=== PATIENT | male | born 1960 | race Caucasian/White ===

== ENCOUNTER 2017-07-13 09:40 | Day surgery (SDC) | payer MEDICARE, OTHER ==
[~2017-07-13] VITALS: Ht 170.2 cm; Wt 67.9 kg
[2017-07-13] MEDS ORDERED: OMEPRAZOLE (10:55)
[2017-07-13] MEDS ORDERED: RANITIDINE (10:55)
[2017-07-13] MEDS ORDERED: TAMSULOSIN (10:55)
[2017-07-13] MEDS ORDERED: SIMVASTATIN (10:55)
[2017-07-13] MEDS ORDERED: TRAMADOL (10:55)
[2017-07-13] MEDS ORDERED: [UNRECOGNIZED DRUG - OTHER] (10:55)
[2017-07-13] MEDS ORDERED: [UNRECOGNIZED DRUG - OTHER] (10:55)
[2017-07-13] MEDS ORDERED: MIDAZOLAM 1 MG/ML 2 ML INJ ONE (11:19)
[2017-07-13] MEDS ORDERED: LIDOCAINE 2% (SDV) 5 ML INJ ONE (11:19)
[2017-07-13] MEDS ORDERED: PROPOFOL 40 ML ONE (11:19)
[2017-07-13 11:26] VITALS: BP 130/73; PULSE 87; RESP 16
--- NOTE | 2017-07-13 11:53 | OPPN ---
Date/Time of Note Date/Time of Note DATE: 07/13/17 TIME: 11:50 Operative Report Preoperative Diagnosis Abdominal pain and chronic heartburn Dysphagia Screening Postoperative Diagnosis Gastroesophageal reflux disease Gastritis Gastric mucosal biopsies were taken for H. pylori test Operation/Procedure Performed Esophagogastroduodenoscopy and biopsy Colonoscopy Provider: CHUY VALDES MD Anesthesia Type: MAC Estimated blood loss: none Transfusion Required: no Specimens Gastric mucosal biopsy Grafts/Implants: none Complications: no CHUY VALDES MD Jul 13, 2017 11:52
[2017-07-13 12:15] VITALS: BP 128/72; RESP 21
--- NOTE | 2017-07-13 13:44 | GILP ---
DATE OF PROCEDURE: 07/13/2017 PROCEDURE PERFORMED: 1. Esophagogastroduodenoscopy and biopsy. 2. Colonoscopy. SURGEON: Leigh Bedolla MD. PREOPERATIVE DIAGNOSIS: 1. Chronic heartburn. 2. Dysphagia. 3. Abdominal pain. 4. Screening colonoscopy. POSTOPERATIVE DIAGNOSES: 1. Gastroesophageal reflux disease. 2. Gastritis with erosions. 3. Gastric mucosal biopsies were taken for Helicobacter pylori test. 4. Colonoscopy all the way to the cecum. 5. Internal hemorrhoids. 6. No colon neoplasm was identified. INDICATION: Mr. Toi Colon is a 56-year-old male patient who had chronic heartburn associated with dysphagia. He also had upper abdominal pain and nausea. The patient also needed a screening colonoscopy. He noticed a change in the bowel habits. The procedures and possible complications were well explained to the patient. The patient understood and consented to the procedures. DESCRIPTION OF PROCEDURE: Under influence of anesthesia, the gastroscope was carefully introduced into the esophagus. Under direct vision, it was advanced to the stomach, into the pylorus, into the duodenal bulb, and descending duodenum. FINDINGS: Esophagus: The patient had gastroesophageal reflux disease. There was no stricture or neoplasm. Stomach: He had gastritis with erosions. Gastric mucosal biopsies were taken for Helicobacter pylori test. Duodenum was normal. DESCRIPTION OF PROCEDURE: The colonoscope was carefully introduced in the rectum. Under direct vision, it was advanced all the way to the cecum. FINDINGS: The patient had internal hemorrhoids. No colon neoplasm was identified. He tolerated the procedures very well. There was no complication from the procedures. At the end of procedures he was awake with stable vital signs. He was discharged home in care of his family. IMPRESSION: Please see postop diagnoses. PLAN: 1. Continue omeprazole and Zantac. 2. Await Helicobacter pylori test report. 3. MiraLAX 17 g dissolved in a glass of water p.o. daily. 4. Next screening colonoscopy in 10 years. Dictated By: MD DENIS Hernandez/felicia/reny /Document#: [id number]
--- NOTE | 2017-07-14 06:50 | CONS ---
DATE OF ADMISSION: 07/13/2017 DATE OF CONSULTATION: Dear Dr. Haq, I thank you very much for this kind referral. HISTORY OF PRESENT ILLNESS: Mr. Billy Hui is a 56-year- old male patient who was been referred to me for further evaluation of chronic heartburn associated with dysphagia. The patient has been taking omeprazole and Zantac without much relief. He is also nauseated, and he has been taking Zofran. There is no past history of peptic ulcer disease. He is not taking any nonsteroidal anti-inflammatory agents. His appetite has been somewhat poor. No history of gallstones or liver disease. The patient also has no change in the bowel habits or constipation. There is no past history of colon neoplasm. The patient has never had a screening colonoscopy. He is not hypertensive or diabetic. He does not have any heart disease or lung problems. No kidney disease. He has hyperlipidemia. He has enlarged prostate. He has arthritis, and he is status post multiple back surgeries. He is on Tramadol. SOCIAL HISTORY: He is a nonsmoker. He does not abuse alcohol. FAMILY HISTORY: Negative for gastrointestinal tract neoplasm. ALLERGIES: CEPHALEXIN. MEDICATION: 1. Omeprazole 20 mg p.o. daily. 2. Zantac 150 mg p.o. b.i.d. 3. Zofran 500 mg p.o. p.r.n. 4. Tramadol 50 mg p.o. b.i.d. p.r.n. 5. Flomax 0.4 mg p.o. daily. 6. Simvastatin 20 mg p.o. daily. PHYSICAL EXAMINATION: GENERAL: He is 5 feet 7 inches tall and weighs 158 pounds. BMI 25. Blood pressure 134/72. HEART: Normal heart sounds. LUNGS: Clear. ABDOMEN: Soft. No masses. No tenderness. Normal bowel sounds. NEURO: Normal neurological exam. IMPRESSION: 1. Chronic heartburn associated weight dysphagia. The patient has been taking omeprazole and Zantac. The patient also complains of nausea, and he has been taking Zofran. No change in the bowel habits or constipation. The patient has never had a screening colonoscopy. 2. Enlarged prostate. 3. Hyperlipidemia. 4. Arthritis. 5. Status post multiple back surgeries. The patient is on tramadol. 6. History of allergy to cephalexin. PLAN: Endoscopy and colonoscopy for further evaluation. Follow up with a primary MD for the follow-up of BMI and blood pressure. The procedures and possible complications were well explained to the patient. He understands and consents to the procedures. I thank you once again. With warmest personal regards, Dictated By: MD DENIS Hernandez/felicia/teri /Document#: [id number]
== END 2017-07-13 17:14 | disposition home or self-care (01) ==
LOC: GIL 09:40
PROVIDERS: ATTEND Internal Medicine Gastroenterology
DX: Z12.11 Encounter for screening for malignant neoplasm of colon (principal); K21.9 Gastro-esophageal reflux disease without esophagitis; K29.60 Other gastritis without bleeding; K64.8 Other hemorrhoids; E78.5 Hyperlipidemia, unspecified; N40.0 Benign prostatic hyperplasia without lower urinary tract symptoms
CPT/HCPCS: 43239; 45378; 87081; J2250